=== PATIENT | male | born 1960 | race Caucasian/White ===

== ENCOUNTER 2022-07-09 05:46 | Observation (INO) ==
--- NOTE | 2022-06-03 13:29 | PAT Medication Instructions ---
Medication Instructions Date of Service June 03, 2022 Home Medications Medication Instructions Recorded diclofenac sodium 1 % topical gel 1 g topical QID PRN pain #100 grams 02/20/20 (Voltaren) simvastatin 80 mg tablet 80 mg PO HS #90 tabs 09/07/21 omeprazole 20 mg tablet,delayed 20 mg PO BID #180 tabs 09/15/21 release sildenafil 100 mg tablet 100 mg PO DAILY PRN sexual 05/05/22 activity #90 tabs diclofenac sodium 1 % topical gel (Voltaren) 1 g topical QID PRN pain fexofenadine 180 mg tablet (Sindy Allergy) 180 mg PO QAM ropinirole 1 mg tablet 1 mg PO HS PRN Restless Leg(S) triamcinolone acetonide 0.1 % topical cream 1 applic topical BID PRN Rash simvastatin 80 mg tablet 80 mg PO HS omeprazole 20 mg tablet,delayed release 20 mg PO BID sildenafil 100 mg tablet 100 mg PO DAILY PRN sexual activity STOP taking 24 hours before surgery diclofenac sodium 1 % topical gel (Voltaren) 1 g topical QID PRN pain triamcinolone acetonide 0.1 % topical cream 1 applic topical BID PRN Rash sildenafil 100 mg tablet 100 mg PO DAILY PRN sexual activity DO NOT take the morning of surgery fexofenadine 180 mg tablet (Sindy Allergy) 180 mg PO QAM Take morning of surgery With a small sip of water, OTHERWISE NOTHING TO EAT OR DRINK AFTER MIDNIGHT: omeprazole 20 mg tablet,delayed release 20 mg PO BID Take evening before surgery ropinirole 1 mg tablet 1 mg PO HS PRN Restless Leg(S) (if needed) simvastatin 80 mg tablet 80 mg PO HS omeprazole 20 mg tablet,delayed release 20 mg PO BID Other Notes If you have any questions please call us at [phone] or [phone] or [phone] or [phone]
--- NOTE | 2022-06-10 10:57 | Anesthesiology Consultation ---
Date of Service June 10, 2022 Assessment & Plan (1) Encounter for pre-operative examination: - Outpatient joint assessment: Patient is currently scheduled for inpatient pathway. If re-evaluated pending system levels during current pandemic/surgeon requests outpatient pathway, patient is acceptable candidate for outpatient joint program from anesthesia standpoint. - Discussed case with Dr. Hopper who advised pt is acceptable to proceed and would be acceptable OPJ candidate if re-evaluated in future. - COVID screening: Per assessment on 06/10/2022: Travel screen negative, no known COVID-19 positive contacts or current COVID-19 related symptoms in past 2 weeks. Pt vaccinated. To surgeon's discretion if preop COVID testing needed. Chart Review Chart Review: Acceptable Risk for Surgery and Patient seen in Pre Admission Testing Teaching & Discussion Pre-Anesthesia Teaching/Discussion Notes: Instructed NPO after midnight before surgery, except medications with 15 cc of water. Medication instructions provided according to the PAT guidelines. History Surgery Operation Date: 07/09/22 08:50 Proposed Procedures p Left Total Knee Arthroplasty - Ryan Carcamo MD Height/Weight Height: 6 ft Weight: 103.4 kg Allergies Allergy/AdvReac Type Severity Reaction Status Date / Time No Known Allergies Allergy Unknown Verified 06/08/22 09:45 Medications Home Medications Medication Instructions Recorded Confirmed Last Taken diclofenac sodium 1 % topical gel 1 g topical QID PRN pain #100 grams 02/20/20 06/08/22 06/07/22 (Voltaren) fexofenadine 180 mg tablet 180 mg PO QAM 04/28/20 06/08/22 06/07/22 (Sindy Allergy) ropinirole 1 mg tablet 1 mg PO HS PRN Restless Leg(S) 05/14/20 06/08/22 06/07/22 triamcinolone acetonide 0.1 % 1 applic topical BID PRN Rash 06/09/21 06/08/22 06/07/22 topical cream omeprazole 20 mg tablet,delayed 20 mg PO BID #180 tabs 09/15/21 06/08/22 06/07/22 release sildenafil 100 mg tablet 100 mg PO DAILY PRN sexual 05/05/22 06/08/22 06/07/22 activity #90 tabs simvastatin 80 mg tablet 80 mg PO HS #90 tabs 06/08/22 Unknown atorvastatin 80 mg tablet 80 mg PO DAILY #90 tabs 06/09/22 Unknown Wheeled Walker #1 ea 06/10/22 06/10/22 Unknown Past Medical History Medical History Barretts esophagus Cardiac murmur Cataracts, bilateral Esophageal dysphagia GERD (gastroesophageal reflux disease) History of blood transfusion Hyperlipidemia Kidney stones Patient denies h/o stroke, seizures, heart attack, heart failure, DM, HTN, blood clots or blood transfusions. Exercise / Class Metabolic Activity II 4-5 Yardwork/Stairs/Walk up hill (occ SOB with 1 FOS since onset of knee dysfunction/increased effort going up stairs d/t knee; denies chest discomfort; denies needing to stop) Past Family History Family History Mother Breast cancer Brother Pancreatic cancer Other Cancer Diabetes Lung cancer No family history of adverse response to anesthesia Denies family history of Ovarian cancer Prostate cancer Myocardial infarction Colorectal cancer Past Surgical History Surgical History H/O lumbosacral spine surgery History of arthroscopy of left knee History of cataract extraction History of colonoscopy History of esophagogastroduodenoscopy (EGD) Hx of hernia repair S/P wisdom tooth extraction Past Anesthesia History No Hx of Anesthesia Complications and No Family Hx of Anesthesia Complications History of PONV No Hx of PONV and No Hx of Motion Sickness Social History Smoking Status: Never smoker Do You Dip or Chew Tobacco: No Hx Alcohol Use: No Hx Substance Use: No substance use type: does not use Review of Systems Snoring, denies witnessed apneas. Patient denies chest pain, shortness of breath, dyspnea on exertion, fever, chills, cough, wheezing, or palpitations. Physical Exam Vital Signs Vitals BP 130/78 P 59 TEMP 98.0 SP02 98% on RA RESP 17 Physical Full cervical extension range of motion without pain TMD 3.5 finger breadths Mallampati Score 2 Dentition: intact, denies chipped or loose teeth, caps/crowns, implants or bridges Lungs: normal respiratory effort. Clear throughout to auscultation, no adventitious breath sounds Cardiac: regular rate and rhythm, no murmurs noted Carotid arteries: negative bruit bilat Lab Results Anesthesia Preop Results Results Anesthesia Widget: WBC 9.22 K/ul (4.8-10.8) 06/10/22 Hgb 14.9 g/dl (14.0-18.0) 06/10/22 Hct 44.1 % (40.1-51.0) 06/10/22 Plt 298 K/uL (130-400) 06/10/22 Na 139 mmol/L (136-145) 06/10/22 K 4.3 mmol/L (3.5-5.1) 06/10/22 Cl 106 mmol/L (98-107) 06/10/22 CO2 26 mmol/L (21-32) 06/10/22 BUN 14 mg/dl (6-23) 06/10/22 Creat 0.85 mg/dl (0.6-1.4) 06/10/22 Glucose Level 87 mg/dl (70-99(Fasting)) 06/10/22 PT 10.7 Seconds (9.0-12.0) 06/10/22 PTT 26.9 Seconds (21.0-31.0) 06/10/22 INR 1.0 (0.9-1.1) 06/10/22 Blood Type O Negative 06/10/22 Antibody Screen NEGATIVE 06/10/22 Testing Electrocardiogram Date: 06/10/22 Sinus bradycardia, rate 57 bpm Chest X-Ray Date: 06/10/22 PA and lateral chest radiographs are compared to study dated 03/25/2014. The cardiomediastinal silhouette is top normal for projection. The lungs and pleural spaces are clear. There is no pneumothorax. The bony thorax appears intact. IMPRESSION: No active disease in the chest.
--- NOTE | 2022-07-03 19:46 | History and Physical Report ---
CHIEF COMPLAINT: Bilateral knee pain and discomfort, left side greater than right. HISTORY OF PRESENT ILLNESS: The patient is a 62-year-old gentleman who presents for surgical treatme nt of his left knee. He has got a long history of bilateral knee pain and discomfort, left side a bi t worse than right. He did have his left knee scoped about 15 years ago. He recently retired. He t hought his knees would hurt less, but he has found out that he is doing more and his knees are hurtin g more. The left knee is worse than the right. He has been through extensive conservative treatment , which has become less successful over time. He is hoping to have the left knee replaced and the ri ght one done at some future time. PAST MEDICAL HISTORY: 1. Elevated cholesterol. 2. Gastroesophageal reflux disease. 3. Back surgery. 4. Kidney stones. PAST SURGICAL HISTORY: Includes: 1. Nelson's esophagitis surgery. 2. Back/disc surgery. 3. He has had left knee scope done by 15 years ago. ALLERGIES: None. CURRENT MEDICATIONS: Include: 1. Atorvastatin. 2. Topical diclofenac. 3. Sindy. 4. Omeprazole. 5. Ropinirole. 6. Sildenafil. 7. Simvastatin. 8. Triamcinolone topical cream. SOCIAL HISTORY: A 62-year-old male. He is retired. He does not drink. No smoking history. FAMILY HISTORY: Noncontributory. REVIEW OF SYSTEMS: Negative for diabetes. No chest pain or shortness of breath. No history of DVT or PE. No known bleeding problems. PHYSICAL EXAMINATION: GENERAL: Shows a pleasant, healthy middle-aged male. Looks to be in good health. HEENT: Benign. NECK: Supple. No lymphadenopathy. LUNGS: Clear to auscultation. HEART: Regular rate and rhythm. ABDOMEN: Soft, nontender, nondistended. EXTREMITIES: Grossly neurovascularly intact except as follows. Examination of the left knee revealed the patient walks with a bit of a limp. He has got varus align ment to his knee. He has got a varus thrust with weightbearing. He is tender over medial joint line . He has got bony hypertrophy medially. Range of motion 5-120. No instability. No pain with hip m otion. X-RAYS: X-rays of the left knee are reviewed. It shows advanced left knee degenerative joint diseas e in both knees. He has got complete loss of medial joint space. He has got osteophytes, primarily medially. ASSESSMENT: A 62-year-old male with advanced bilateral knee degenerative joint disease, left side a bit more symptomatic than right. He has failed conservative treatment. He is hoping to proceed with left knee replacement. PLAN: We will proceed with left knee replacement. Risks and benefits of procedure were explained to the patient and include, but not limited to DVT, PE, , infection, neurological injury, vascular injury, bleeding problem, pain, limited range of motion, stiffness, failure to relieve symptoms, inc omplete relief of symptoms, etc. The patient understands and desires to proceed. Informed consent w as obtained. He is hoping to go on a cruise 12 weeks postop and he should be good to do that as long as all goes w maty. Job ID: [id number]
[2022-07-09] MEDS ORDERED: CeleBREX 200 MG CAP PO SCH (06:00)
[2022-07-09] MEDS ORDERED: FAMOTIDINE 20 MG TAB PO SCH (06:00)
[2022-07-09] MEDS ORDERED: LR 60ML/HR IV SCH (06:00)
[2022-07-09] MEDS ORDERED: METOCLOPRAMIDE HCL 10 MG TABLET PO SCH (06:00)
[2022-07-09] MEDS ORDERED: ACETAMINOPHEN 500 MG TAB PO SCH (06:00)
[2022-07-09] MEDS ORDERED: BUPIVACAINE LIPOSOME/PF 266 MG, BUPIVACAINE/EPINEPHRINE 50 ML, SODIUM CHLORIDE 0.9% 30 ... INFIL SCH (06:00)
[2022-07-09] MEDS ORDERED: TRANEXAMIC ACID 1,000 MG **IV Intra-op IV SCH (06:00)
[2022-07-09] MEDS ORDERED: Scopolamine 1 MG TDSY TD SCH (06:00)
[2022-07-09] MEDS ORDERED: ceFAZolin 2000MG 2,000 MG/15 ML SYR IV SCH (06:00)
[2022-07-09] MEDS ORDERED: ROPIVACAINE 0.5% 5 MG/ML 30 ML VIAL ONE (06:29)
[2022-07-09] MEDS ORDERED: BUPIVACAINE 0.5 % 5 MG/1 ML PF 10ML VIAL ONE (06:29)
--- NOTE | 2022-07-09 06:50 | History & Physical Bridge Note ---
Date of Service July 09, 2022 History & Physical Bridge Note I have examined the patient, reviewed the History & Physical and in the interval since the performance of the History & Physical I have noted the following changes of clinical significance: no changes noted
[2022-07-09] MEDS ORDERED: ePHEDrine sulfate 50 MG/ML AMP IV PRN (07:24)
[2022-07-09] MEDS ORDERED: ONDANSETRON INJ 2 MG/ML 2 ML VIAL IV PRN ×2 (07:24→12:45)
[2022-07-09] MEDS ORDERED: ATROPINE SULFATE 0.1 MG/ML 10ML SYR IV PRN (07:24)
[2022-07-09] MEDS ORDERED: fentaNYL citrate 100 MCG/2 ML VIAL IV PRN (07:24)
[2022-07-09] MEDS ORDERED: MIDAZOLAM HCL 1 MG/ML 2ML VIAL ONE (07:46)
[2022-07-09] MEDS ORDERED: fentaNYL citrate 100 MCG/2 ML VIAL ONE (07:46)
[2022-07-09] MEDS ORDERED: LIDOCAINE 2% MPF LOCAL 5 ML VIAL INFIL ONE (08:02)
[2022-07-09] MEDS ORDERED: PROPOFOL IV EMULSION 10 MG/ML 20 ML VIAL IV ONE ×2 (08:02→11:13)
[2022-07-09] MEDS ORDERED: BUPIVACAINE/EPINEPHRINE 0.25% 1:200,000 30 ML VIAL ONE (08:53)
[2022-07-09] MEDS ORDERED: BUPIVACAINE LIPOSOME 1.3% 266 MG/20 ML VIAL ONE (08:53)
[2022-07-09] MEDS ORDERED: SODIUM CHLORIDE 0.9% PF 50 ML VIAL ONE (08:53)
[2022-07-09] MEDS ORDERED: ONDANSETRON INJ 2 MG/ML 2 ML VIAL ONE (09:35)
--- NOTE | 2022-07-09 11:36 | Operative Report ---
PG Post Operative Report Pre & Post Diagnosis Operation Date: 07/09/22 08:50 Pre-Op Diagnosis: Left Knee Osteoarthritis Post-Op Diagnosis: Left Knee Osteoarthritis I identified the patient and participated in the time-out.: Yes Procedure Operation Date: 07/09/22 08:50 Actual Procedures p Left Total Knee Arthroplasty(Left) - Ryan Carcamo MD Surgeon Ryan Carcamo MD Change Agent Sandeep Miles PA-C Estimated Blood Loss 50 Findings Consistent with Post-Op Diagnosis Operative findings advanced left knee DJD. Extensive grade 4 [id number] disease of the medial compartment with a punctate hemorrhage in the medial femoral condyle and extensive eburnation anteromedial side. Varus deformity to his knee. Moderate-sized joint effusion. Osteophytes primarily medially. Specimens Left knee for pathology. Anesthesia Type Spinal MAC Complications none Disposition Accompanied Patient To Recovery: No Indications Patient is a 62-year-old gentleman who had a long history of a left knee pain discomfort that we been followed for the past 6 to 7 years. He has been through extensive conservative treatment which became less successful over time. X-rays show progressive knee arthritis. Failed conservative measures and elected proceed with total knee arthroplasty. Description of Procedure Operative implants consist of: 1 Biomet Vanguard size 75 left posterior stabilized femoral component. 2. Biomet size 79 tibial tray. 3. 10 mm posterior stabilized polyethylene insert. 4. 34 x 8 and half all Paller patella. The patient was taken the operating, identified, and placed on the operating table supine position protectors were properly padded. Antibiotics were given the anesthesia team. A Dupree cath was placed in sterile fashion. A spinal anesthetic and abductor canal block had provided in the holding area. IV antibiotics were provided. Left factor was then placed. Left lower extremity then prepped draped in usual sterile fashion. The left leg was elevated exsanguinated with use of an Esmarch interspaced at 3 mmHg. An anterior posterior left knee was then performed to longitudinal incision centered over the patella. Sharp dissection Through subcutaneous tissue down to the extensor mechanism. Medial proper arthrotomy incision was made. Some subperiosteal dissection was carried out medially. The fat pad was resected from Neath patella tendon. The lateral patellofemoral ligament was released. Patella subluxated laterally and the knee was flexed. The osteophytes taken off distal femur for the ACL and PCL were then released from distal femur the tibia subluxated anteriorly. The external treatment line jig was then placed the interface of the tibia and adjusted 14 mm. The proximal tibial cut was made essentially flush with the most deficient aspect medial tibial plateau. He did have quite a bit of wear in the medial side with eburnated bone. Some osteophytes taken off medial and posterior medially. The tibia sized to a size 79. Attention drawn the femur. The distal femur stem with a sharp drop with intramedullary canal was suction. A left 60 valgus cutting guide was placed but this femoral cutting block was pinned in place. This femoral cut was made to take an additional 3 mm bone off distal femur. The femur was then sized to a size 75. The AP cutting block was pinned parallel to the epicondylar axis which was 3 degrees of external rotation. Anterior cut, anterior chamfer, posterior cut, posterior chamfer cuts were made. The box cutting guide was placed in just slight lateral box cut was made. Knee was flexed to the remnants of the medial and lateral menisci were excised with the osteophytes taken off the posterior aspect the femur. A trial femoral component was placed. Tibial tray was pinned in maximum external rotation and the drill and stem punch were used to create defect in proximal tibia for the tibial tray. The knee was then trialed with a 10 mm insert fit most appropriate. Attention drawn the patella. Patella was cleaned of all soft tissue. Patella thickness measured 27 mm in thickness and was cut down to 15. Sized to a size 34 patella. The lug holes were drilled for 34 patella. Lateral osteophytes removed. Patella button was placed. Knee was taken through range of motion patella tracked nicely with no thumbs test. Attention drawn to placing permanent components. Follow-up for complete removed. Bone plug was placed in the distal femur limit blood loss. A double batch Palacos G cement was mixed. [id number] size 75 left posterior stabilized femoral component, size 79 tibial tray, a 10 mm posterior stabilized polyethylene insert, and a 34 x 8 and half all Paller patella then cemented in place. The knee was brought out into full extension total cement hardened. Final cement check was then performed. Pericapsular tissues were injected with total of 100 cc of combination of 20 cc of Exparel, 30 cc normal saline, 50 cc of quarter percent Marcaine with epinephrine. Patient did receive 1 g tranexamic acid per the turn was let down for final turn time 77 minutes but hemostasis was used with electrocautery. The extensor mechanism closed with combination 1 PDS suture #1 Vicryl suture in [id number] fashion. Extensor mechanism checked found be intact and subcutaneous tissue then closed with 2 Dexon suture in a buried knot fashion skin was closed skin artur. Legs then cleaned and dried a sterile dressing was Xeroform, 4 x 4's, sterile cast padding, Pool bandage were applied. Patient then transferred to the recovery room in stable condition. Patient tolerated procedure well and there were no complications. Sandeep Tan, my physician licensed occupational therapy assistant, was present for the entire procedure. His assistance was required for proper patient positioning, prepping and draping, surgical exposure, retraction, performing the technical details the operation, placing the implants, closure of the wound, placement of sterile bandage. I attest to the content of the Intraoperative Record and any orders documented therein. Any exceptions are noted below.
--- NOTE | 2022-07-09 12:42 | Anesthesiology Progress Note ---
Date of Service July 09, 2022 Anesthesia Post Procedure Vital Signs Vital Signs: Temp Pulse Pulse Resp BP Pulse Ox O2 Del Method 07/09/22 12:25 52 L 16 131/71 97 Room Air 07/09/22 12:15 58 L 20 135/72 95 Room Air 07/09/22 12:05 97.2 F L 65 15 130/68 97 Room Air 07/09/22 11:55 62 20 116/76 97 Room Air 07/09/22 11:45 58 L 16 117/63 93 Room Air 07/09/22 11:35 58 L 18 108/59 L 99 Oxymask 07/09/22 11:25 97.5 F L 62 12 118/59 L 99 Oxymask 07/09/22 06:20 97.7 F 74 20 121/77 97 Room Air O2 Flow Rate 07/09/22 12:25 07/09/22 12:15 07/09/22 12:05 07/09/22 11:55 07/09/22 11:45 07/09/22 11:35 7 07/09/22 11:25 7 07/09/22 06:20 Transfer of Care Handoff Completed per policy Notes Mental Status: alert / awake / arousable and participated in evaluation Patient Amnestic to Procedure: Yes Nausea / Vomiting: adequately controlled Pain: adequately controlled Airway Patency, RR, SpO2: stable & adequate BP & HR: stable & adequate Hydration State: stable & adequate Neuraxial Anesthesia: was administered and sensory block is resolving Anesthetic Complications: no major complications apparent and Pt Satisfied with anesthetic care
[2022-07-09] MEDS ORDERED: TRIAMCINOLONE ACET 0.1% CR 15 GM TUBE TOP PRN (12:45)
[2022-07-09] MEDS ORDERED: HYDROmorphone INJ 1 MG/ML SYRINGE IV PRN (12:45)
[2022-07-09] MEDS ORDERED: bisacodyL 10 MG SUPP PR PRN (12:45)
[2022-07-09] MEDS ORDERED: ALUMINUM/MAGNESIUM SUSP 30 ML UDC PO PRN (12:45)
[2022-07-09] MEDS ORDERED: METOCLOPRAMIDE HCL INJ 5 MG/ML 2 ML VIAL IV PRN (12:45)
[2022-07-09] MEDS ORDERED: NON-FORMULARY MEDICATION (Sildenafil 100 mg tablet) PO PRN (12:45)
[2022-07-09] MEDS ORDERED: NALOXONE HCL 0.4 MG/1 ML VIAL/CARP IV PRN (12:45)
[2022-07-09] MEDS ORDERED: MAGNESIUM HYDROXIDE SUSP 30 ML UDC PO PRN (12:45)
[2022-07-09] MEDS ORDERED: oxyCODONE HCL IR 5 MG TAB (IMMEDIATE RELEASE) PO PRN (12:45)
[2022-07-09] MEDS ORDERED: rOPINIRole HCL 1 MG TABLET PO PRN (12:45)
--- NOTE | 2022-07-09 12:47 | XRay Report ---
LEFT KNEE 2 VIEWS History: Left total knee arthroplasty. Degenerative arthritis. Postop. FINDINGS: The patient is status post a left total knee arthroplasty. The hardware is intact. No fract ure or dislocation. Skin artur are in place. IMPRESSION: Left total knee arthroplasty. No evidence for hardware complication. ACT 112: Negative or not required by law. Electronically signed by: Akira Reyes M.D. 07/09/2022 12:46 PM
[2022-07-09] MEDS: SODIUM CHLORIDE 0.9% 1000ML 1,000 ML IV SCH ×2 (13:56→23:01)
[2022-07-09] MEDS: ACETAMINOPHEN 500 MG TAB PO SCH ×2 (13:57→23:01)
[2022-07-09] MEDS: Scopolamine CHECK PATCH PLACEMENT SCH ×2 (13:57→23:32)
[2022-07-09] MEDS: KETOROLAC 30 MG/ML VIAL IV SCH ×2 (16:53→23:01)
[2022-07-09] MEDS: ceFAZolin 2000MG 2,000 MG/15 ML SYR IV SCH (16:53)
[2022-07-09] MEDS: ASCORBIC ACID 500 MG TAB PO SCH (16:54)
[2022-07-09] MEDS ORDERED: TRANEXAMIC ACID / 0.7% NACL 1,000 MG/100 ML BAG IV SCH (17:30)
[2022-07-09] MEDS: TAPENTADOL HCL ER 50 MG TABCR PO SCH (20:35)
[2022-07-09] MEDS: DOCUSATE SODIUM 100 MG CAP PO SCH (20:35)
[2022-07-09] MEDS: ASPIRIN 81 MG ECTAB PO SCH (20:36)
[2022-07-09] MEDS: PANTOprazole 40 MG TAB PO SCH (20:36)
[2022-07-09] MEDS ORDERED: SENNA 8.6 MG TAB PO SCH (21:00)
[2022-07-10] MEDS: ceFAZolin 2000MG 2,000 MG/15 ML SYR IV SCH (02:07)
[2022-07-10] MEDS: KETOROLAC 30 MG/ML VIAL IV SCH ×2 (05:45→11:58)
[2022-07-10] MEDS: ACETAMINOPHEN 500 MG TAB PO SCH (05:46)
[2022-07-10 07:00] LABS: Hematocrit (blood only) 37.2 % (40.1-51.0); Hemoglobin 12.4 g/dl (14.0-18.0); Mean Corpuscular Hemoglobin 29.7 pg (25.0-34.0); Mean Corpuscular Hgb Conc 33.3 g/dL (32.0-36.0); Platelet Count 196 K/uL (130-400); RDW Coefficient of Variation 13.8 % (11.5-14.5); RDW Standard Deviation 45.1 fL (36.4-46.3); Red Blood Count 4.18 M/uL (4.63-6.08); White Blood Count 10.55 K/ul (4.8-10.8)
[2022-07-10 07:34] LABS: BUN Creatinine Ratio 13.3 (10-20); Calcium 8.5 mg/dl (8.5-10.1); Creatinine Clr Calc Pharmacy 88.3 ml/min; Est GFR (African American) 86.5 ml/min; Est GFR (Non-African American) 74.7 ml/min; Potassium 4.4 mmol/L (3.5-5.1)
[2022-07-10] MEDS ORDERED: dexAMETHasone 10 MG in SYRINGE 0 ML IV SCH (08:00)
[2022-07-10] MEDS ORDERED: ATORVASTATIN 40 MG TAB PO SCH (09:00)
[2022-07-10] MEDS ORDERED: TAMSULOSIN HCL 0.4 MG CAP PO SCH (09:00)
[2022-07-10] MEDS ORDERED: FEXOFENADINE HCL 180 MG TAB PO SCH (09:00)
[2022-07-10] MEDS ORDERED: MULTIVITAMIN TAB PO SCH (09:00)
[2022-07-10] MEDS ORDERED: DOCUSATE SODIUM/SENNA 50/8.6MG TAB PO SCH (09:00)
--- NOTE | 2022-07-10 09:00 | Progress Notes ---
DATE OF NOTE: 07/10/2022 SUBJECTIVE: A 62-year-old gentleman postoperative day 1 from a left knee replacement. He is doing p retty well. His pain is reasonably well controlled. Having a little trouble lifting his leg and edison t is about it. No chest pain or shortness of breath. Not feeling dizzy or lightheaded. OBJECTIVE: VITAL SIGNS: Temperature 37.0. Vital signs are stable. GENERAL: Shows a pleasant middle-aged male. He is sitting up in bed and looks pretty comfortable. LUNGS: Clear to auscultation. HEART: Regular rate and rhythm. ABDOMEN: Soft, nontender, nondistended. EXTREMITIES: Grossly neurovascularly intact except as follows. Examination of the left leg reveals the dressing to be clean, dry and intact. He can dorsiflex and p lantarflex his foot appropriately. Cannot quite do a straight leg raise on his own. He is neurologi reji intact. LABORATORY DATA: Hemoglobin 12.4. Hematocrit 37.2. Electrolytes are stable. ASSESSMENT: A 62-year-old gentleman, postoperative day 1 from a left total knee replacement, doing r easonably well. Pain is reasonably well controlled. He is neurologically intact. PLAN: 1. DVT prophylaxis including thigh-high TEDs, SCDs, and aspirin twice a day. 2. PT/OT, weightbear as tolerated. Left total knee protocol. 3. Pain control, doing okay with current pain regimen. 4. Disposition: Plan to discharge to home with some home health, depending on how he does today. Job ID: [id number]
[2022-07-10] MEDS: Scopolamine CHECK PATCH PLACEMENT SCH (09:07)
[2022-07-10] MEDS: DOCUSATE SODIUM 100 MG CAP PO SCH (09:13)
[2022-07-10] MEDS: TAPENTADOL HCL ER 50 MG TABCR PO SCH (09:13)
[2022-07-10] MEDS: ASPIRIN 81 MG ECTAB PO SCH (09:14)
[2022-07-10] MEDS: ASCORBIC ACID 500 MG TAB PO SCH (09:14)
[2022-07-10] MEDS: PANTOprazole 40 MG TAB PO SCH (10:39)
== END 2022-07-10 13:08 | disposition home health service (06) ==
LOC: ASU 05:46 → 3E 05:46